=== PATIENT | male | born 1935 | race Caucasian/White ===

== ENCOUNTER → 2017-02-05 | Outpatient (CLI) | payer BC ==
[2017-02-05 11:31] LABS: Blood Urea Nitrogen 21 mg/dL (9-20); Non-African American GFR(MDRD) >60 (>60 ml/min/1.73 sqM)
--- NOTE | 2017-02-05 15:03 | CT ---
EXAMINATION TYPE: CT ChestAbdPelvis w con DATE OF EXAM: 02/05/2017 COMPARISON: CT April 08, [address] August 02, 2016 HISTORY: History of bladder cancer and lung cancer CT DLP: 1684 mGycm Automated exposure control for dose reduction was used. CONTRAST: CT scan of the chest, abdomen and pelvis is performed with Oral Contrast and with IV Contrast, patien t injected with 100 mL of Omnipaque 300. FINDINGS: LUNGS: The lungs are clear and free of infiltrate or atelectasis. No pulmonary nodule or mass is dete cted. No pleural effusion. Scattered subpleural fibrosis and prominent emphysematous changes. MEDIASTINUM: Thoracic aorta is of normal caliber. The right suprahilar prominent lymph node is redemo nstrated, and stable. No other hilar/mediastinal lymph nodes. Coronary calcifications redemonstrated . HILAR STRUCTURES: No evidence for mass. No hilar adenopathy is appreciated. OTHER: No significant abn ormality. LIVER/GB: No calcified gallstones. No space occupying hepatic lesion. Biliary tree is of normal calib er. PANCREAS: No inflammation. No distinct mass. SPLEEN: No splenic enlargement. No lesion seen. ADRENALS: No significant findings; left adrenal nodular appearance remains stable. KIDNEYS/BLADDER: No hydronephrosis. No nephrolithiasis. Stable left renal cyst. Limited evaluation of the urinary bladder given extensive streak artifact from right hip prosthesis. No distinct wall thic kening or masses seen. BOWEL: Normal appendix. Normal bowel caliber. No inflammation. GENITAL ORGANS: No gross abnormality. LYMPH NODES: No greater than 1cm abdominal or pelvic lymph nodes are appreciated. AORTA: Atheromatous and ectatic change of the abdominal aorta. OSSEOUS STRUCTURES: No significant abnormality is seen. IMPRESSION: 1. STABLE NEGATIVE EXAM. 2. LIMITED VISUALIZATION OF THE URINARY BLADDER IS NOTED AGAIN, SECONDARY TO BEAM HARDENING ARTIFACT FROM RIGHT HIP PROSTHESIS. IF CLINICALLY NEEDED, PELVIC MRI METALLIC PROTOCOL CAN BE USED FOR EVALU ATING THE URINARY BLADDER AND DEEP PELVIC STRUCTURES. 3. RIGHT SUPRAHILAR LYMPH NODE.
== END | disposition home or self-care (01) ==
LOC: RADCTMAIN 10:58
PROVIDERS: ATTEND Internal Medicine Hematology & Oncology
DX: C67.2 Malignant neoplasm of lateral wall of bladder (principal)
CPT/HCPCS: 82565; 84520; 71260; 74177; 36415; Q9967

== ENCOUNTER → 2017-08-29 | Outpatient (CLI) | payer BC, MEDICARE ==
[2017-08-29 13:07] LABS: Blood Urea Nitrogen 17 mg/dL (9-20)
--- NOTE | 2017-08-29 14:50 | CT ---
EXAMINATION TYPE: CT ChestAbdPelvis w con DATE OF EXAM: 08/29/2017 COMPARISON: 02/05/2017 and 09/05/2015. HISTORY: Bladder cancer CT DLP: 1542 mGycm. Automated Exposure Control for Dose Reduction was Utilized. CONTRAST: CT scan of the thorax, abdomen and pelvis is performed with IV Contrast, patient injected with 80 mL of Visipaque 320. FINDINGS: LUNGS: Bibasilar pleural parenchymal scarring and moderate paraseptal as well as centrilobular emphys ematous changes the lungs are noted. No new pulmonary nodule or mass. Subpleural fibrosis is unchange d. There is no pleural effusion or pneumothorax seen. The tracheobronchial tree is patent. MEDIASTINUM: There is continued stability of the suprahilar approximately 1.8 x 1.5 cm conglomeration of lymph nodes other scattered nonenlarged lymph nodes are seen within the pretracheal space and aor ticopulmonary window. Severe three-vessel coronary artery calcifications are noted. No pericardial ef fusion is seen. Moderate calcific atheromatous changes are seen of the thoracic aorta. OTHER: Bilateral retroareolar mild gynecomastia is seen. LIVER/GB: No focal hepatic lesion is identified. No intrapelvic biliary ductal dilatation. Cholelithi asis is redemonstrated. PANCREAS: No significant abnormality is seen. No ductal dilatation. SPLEEN: No significant abnormality is seen. No splenomegaly. ADRENALS: Bilobed left adrenal gland nodule measures approximately 1.7 x 1.1 cm and is stable from th e prior. Right adrenal gland is unremarkable. This appears stable dating back to 09/05/2015. KIDNEYS: Fluid attenuated left renal cyst is again seen extending towards the renal pelvis. No hydron ephrosis of either kidney. Kidneys enhance symmetrically other than the previously described left anali al cyst. BOWEL: Numerous sigmoid diverticula are present without pericolonic fat stranding. Other scattered co lonic diverticula are seen, also without surrounding fat stranding. No evidence of bowel dilation. GENITAL ORGANS: The prostate gland is enlarged and heterogenous measuring 5.1 cm. LYMPH NODES: No greater than 1cm abdominal or pelvic lymph nodes are appreciated. OSSEOUS STRUCTURES: Right hip prostheses and moderate multilevel degenerative changes of the visualiz ed thoracolumbar and lumbosacral spine are present. No new suspicious osseous lesion. Dextroscoliotic curvature of the lumbar spine is noted. OTHER: Visualization of the urinary bladder is limited given extensive spray artifact due to the righ t hip prostheses. There is tortuosity of the abdominal aorta with measurement exaggerated by obliquit y although ectasia is measured up to 3.3 x 3.1 cm on series 5 image 82. This extends over approximate ly 5.5 cm on sagittal series 8 image 57. Moderate calcific and noncalcific atheromatous plaquing is s een of the abdominal aorta and its branches. IMPRESSION: 1. Limited visualization of the urinary bladder given extensive spray artifact from the right hip pro stheses. Urinary bladder surveillance could be followed with ultrasound and would be better visualize d in this patient with a history of urinary bladder carcinoma. 2. No suspicious pulmonary nodules in this patient with a given history of lung carcinoma. Moderate p araseptal and centrilobular emphysematous changes and subpleural fibrosis are similar to the prior. 3. Continued stability of the right suprahilar 1.8 x 1.5 cm conglomeration of lymph nodes. No new med iastinal adenopathy. 4. Stable left bilobed adrenal gland nodule measuring 1.7 cm in greatest dimension. 5. Tortuosity of the abdominal aorta partially secondary to a dextroscoliotic curvature of the lumbar spine exaggerates the ectasia. Infrarenal ectasia measures 3.3 x 3.1 x 5.5 cm. 6. Prostate gland enlargement. 7. Fluid attenuated left renal cyst and sigmoid diverticulosis.
== END | disposition home or self-care (01) ==
LOC: RADCTMAIN 11:12
PROVIDERS: ATTEND Internal Medicine Hematology & Oncology
DX: N28.1 Cyst of kidney, acquired (principal); K57.30 Diverticulosis of large intestine without perforation or abscess without bleeding; N40.0 Benign prostatic hyperplasia without lower urinary tract symptoms; J43.2 Centrilobular emphysema; E27.8 Other specified disorders of adrenal gland; I77.1 Stricture of artery; C67.2 Malignant neoplasm of lateral wall of bladder; Z85.118 Personal history of other malignant neoplasm of bronchus and lung
CPT/HCPCS: 82565; 84520; 71260; 74177; 36415; Q9967

== ENCOUNTER → 2017-11-14 | Outpatient (CLI) | payer BC ==
--- NOTE | 2017-11-14 14:04 | MR ---
EXAMINATION TYPE: MR cervical spine wo/w con DATE OF EXAM: 11/14/2017 12:49 PM COMPARISON: NONE HISTORY: Cervical disc degeneration, mid-cervical CONTRAST: The patient was injected with 7 mL intravenous Gadavist gadolinium contrast. Multiplanar MultiSpin echo imaging of the cervical spine was performed. C2-C3: No evidence for degenerative disc disease. No disc bulge/herniation or protrusion. No Canal stenosis. Foramina are patent bilaterally. C3-C4: No evidence for degenerative disc disease. No disc bulge/herniation or protrusion. No Canal stenosis. Foramina are patent bilaterally.Partial congenital fusion noted. C4-C5: Mild degenerative disc disease with mild posterior disc bulge. No evidence for disc herniation or protrusion. No central stenosis. Degenerative changes uncovertebral joints with mild right forami nal encroachment. C5-C6: Severe disc desiccation with the disc endplate complex noted posteriorly. Effacement ventral t hecal sac and ventral cord contact paracentrally and to the left. There is a moderate central stenosi s. Bilateral foraminal encroachment noted. C6-C7: Severe disc desiccation. Broad-based posterior disc bulge with partial encapsulating spur. Mil d central stenosis. Bilateral foraminal encroachment. C7-T1: Moderate to severe disc desiccation. Posterior disc bulge. No evidence of disc herniation or p rotrusion. No central stenosis. Bilateral foraminal encroachment. No cervical spine fracture. There is normal alignment. Cervical spinal cord is of normal signal. C raniovertebral junction relationships are within normal limits. No pathologic enhancement. IMPRESSION: 1. Multilevel degenerative disc disease and spondylosis. 2. Central stenosis noted at C5-6 and C6-7 as noted above. 3. Bilateral foraminal encroachment at multiple levels.
== END | disposition home or self-care (01) ==
LOC: RADMRIMAIN 11:14
PROVIDERS: ATTEND Family Medicine
DX: M48.02 Spinal stenosis, cervical region (principal); M47.812 Spondylosis without myelopathy or radiculopathy, cervical region; M50.321 Other cervical disc degeneration at C4-C5 level
CPT/HCPCS: 82565; 72156; A9581

== ENCOUNTER → 2018-02-25 | Outpatient (CLI) | payer BC ==
--- NOTE | 2018-02-25 13:31 | CT ---
EXAMINATION TYPE: CT ChestAbdPelvis w con DATE OF EXAM: 02/25/2018 COMPARISON: 08/29/2017 HISTORY: Bladder and lung cancer CT DLP: 1439 mGycm Automated exposure control for dose reduction was used. CONTRAST: CT scan of the chest, abdomen and pelvis is performed with Oral Contrast and with IV Contrast, patien t injected with 100 ml mL of Isovue 300. FINDINGS: LUNGS: Bibasilar pleural parenchymal scarring and moderate paraseptal as well as centrilobular emphys ematous changes the lungs are noted. No new pulmonary nodule or mass. Subpleural fibrosis is unchange d. There is no pleural effusion or pneumothorax seen. The tracheobronchial tree is patent. MEDIASTINUM: There is continued stability of the right suprahilar approximately 1.8 x 1.5 cm conglome ration of lymph nodes other scattered nonenlarged lymph nodes are seen within the pretracheal space a nd aorticopulmonary window. Severe three-vessel coronary artery calcifications are noted. No pericard ial effusion is seen. Moderate calcific atheromatous changes are seen of the thoracic aorta. OTHER: Bilateral retroareolar mild gynecomastia is seen LIVER/GB: Cholelithiasis stable. PANCREAS: No significant abnormality is seen. SPLEEN: No significant abnormality is seen. ADRENALS: Bilobed left adrenal gland nodule measures approximately 1.7 x 1.1 cm and is stable from th e prior. Right adrenal gland is unremarkable KIDNEYS: Fluid attenuated left renal cyst is again seen extending towards the renal pelvis. No hydron ephrosis of either kidney. Kidneys enhance symmetrically other than the previously described left anali al cyst BOWEL: BOWEL: Numerous sigmoid diverticula are present without pericolonic fat stranding. Other scat tered colonic diverticula are seen, also without surrounding fat stranding. No evidence of bowel dila tion LYMPH NODES: No greater than 1 cm abdominal or pelvic lymph nodes are appreciated. OSSEOUS STRUCTURES: Scoliotic curvature with multilevel degenerative disc disease noted. Right hip pr ostheses noted which results in significant artifact limits evaluation the pelvis. BOWEL: Numerous sigmoid diverticula are present without pericolonic fat stranding. Other scattered c olonic diverticula are seen, also without surrounding fat stranding. No evidence of bowel dilation OTHER: Visualization of the urinary bladder is limited given extensive spray artifact due to the righ t hip prostheses. There is ectasia of the abdominal aorta measuring a maximal dimension of 3.2 cm sim ilar in appearance to the prior exam. Diffuse atherosclerotic change of the vasculature noted. IMPRESSION: 1. Limited visualization of the urinary bladder given extensive spray artifact from the right hip pro stheses. Urinary bladder surveillance could be followed with ultrasound and would be better visualize d in this patient with a history of urinary bladder carcinoma. 2. No suspicious pulmonary nodules in this patient with a given history of lung carcinoma. Moderate p araseptal and centrilobular emphysematous changes and subpleural fibrosis are similar to the prior. 3. Continued stability of the right suprahilar 1.8 x 1.5 cm conglomeration of lymph nodes. No new med iastinal adenopathy. 4. Stable left bilobed adrenal gland nodule measuring 1.7 cm in greatest dimension. 5. Tortuosity of the abdominal aorta partially secondary to a dextroscoliotic curvature of the lumbar spine exaggerates the ectasia. Infrarenal ectasia measures 3.3 x 3.1 x 5.5 cm. 6. Prostate gland enlargement. 7. Fluid attenuated left renal cyst and sigmoid diverticulosis.
== END | disposition home or self-care (01) ==
LOC: RADCTMAIN 11:11
PROVIDERS: ATTEND Internal Medicine Hematology & Oncology
DX: K57.30 Diverticulosis of large intestine without perforation or abscess without bleeding (principal); J43.2 Centrilobular emphysema; J84.10 Pulmonary fibrosis, unspecified; E27.8 Other specified disorders of adrenal gland; I77.811 Abdominal aortic ectasia; N40.0 Benign prostatic hyperplasia without lower urinary tract symptoms; N28.1 Cyst of kidney, acquired; Z85.118 Personal history of other malignant neoplasm of bronchus and lung; Z85.51 Personal history of malignant neoplasm of bladder; Z96.641 Presence of right artificial hip joint
CPT/HCPCS: 82565; 84520; 71260; 74177; 36415; Q9967

== ENCOUNTER → 2018-06-03 | Outpatient (CLI) | payer BC ==
[2018-06-03 11:26] LABS: Basophils % (A) 1 %; Eosinophils # (A) 0.4 k/uL (0-0.7); Eosinophils % (A) 6 %; HCT 45.5 % (39.0-53.0); Lymphocytes % (A) 26 %; MCH 30.7 pg (25.0-35.0); Mean Platelet Volume 7.1; Monocytes # (A) 0.7 k/uL (0-1.0); Monocytes % (A) 8 %; Neutrophils # (A) 4.5 k/uL (1.3-7.7); Neutrophils % (A) 58 %; Platelet Count 288 k/uL (150-450); RBC 4.89 m/uL (4.30-5.90); RDW 13.3 % (11.5-15.5); WBC 7.8 k/uL (3.8-10.6)
[2018-06-03 12:02] LABS: Albumin 3.8 g/dL (3.5-5.0); Calcium 9.1 mg/dL (8.4-10.2); Potassium 4.8 mmol/L (3.5-5.1); Total Bilirubin 0.9 mg/dL (0.2-1.3); Total Protein 7.2 g/dL (6.3-8.2)
[2018-06-03 12:16] LABS: T4, Free (Free Thyroxine) 0.88 ng/dL (0.78-2.19)
== END | disposition home or self-care (01) ==
LOC: LABWHC1 09:42
PROVIDERS: ATTEND Family Medicine
DX: Z00.00 Encounter for general adult medical examination without abnormal findings (principal); E78.5 Hyperlipidemia, unspecified; I25.2 Old myocardial infarction; J44.9 Chronic obstructive pulmonary disease, unspecified; Z79.899 Other long term (current) drug therapy
CPT/HCPCS: 36415; 80053; 80061; 84439; 84443; 85025

== ENCOUNTER → 2018-09-01 | Outpatient (CLI) | payer BC ==
--- NOTE | 2018-09-01 14:56 | CT ---
EXAMINATION TYPE: CT ChestAbdPelvis w con DATE OF EXAM: 09/01/2018 COMPARISON: Prior CT chest abdomen pelvis 02/25/2018 HISTORY: Follow up to bladder CA CT DLP: 1533 mGycm Automated exposure control for dose reduction was used. CONTRAST: CT scan of the chest, abdomen and pelvis is performed with Oral Contrast and with IV Contrast, patien t injected with 100 mL of Isovue 300. FINDINGS: Coronary artery calcifications are present LUNGS: The lungs are stable with extensive emphysematous changes, there are associated interstitial l yael disease changes with basilar honeycombing, there is no concerning parenchymal mass or nodule iden tified. There is no pleural effusion or pneumothorax seen. The tracheobronchial tree is patent. MEDIASTINUM: There are no greater than 1 cm mediastinal lymph nodes. Right hilar nodes show prominenc e measuring 17 mm in short axis slightly diminished from prior when it measured 21 mm No pericardial effusion is seen. AORTA: Small ulceration noted laterally and inferiorly axial image 17, coronal image 53 at the trans verse aorta, the aorta is calcified and dense, atheromatous changes also present in the descending co jewell and abdominal aorta, iliac vasculature. Infrarenal abdominal aortic aneurysm measures 3.5 cm as o n prior OTHER: No additional significant abnormality is seen. LIVER/GB: Gallbladder shows dependent calculi and some soft tissue prominence noted at the distal asp ect of the fundus is stable, liver shows no mass. PANCREAS: No significant abnormality is seen. SPLEEN: No significant abnormality is seen. ADRENALS: Stable, slightly prominent left adrenal gland. KIDNEYS: Left kidney shows stable cystic focus and there is no hydronephrosis bilaterally REPRODUCTIVE ORGANS: Prostate is enlarged. BOWEL: Extensive diverticular change noted in the sigmoid colon FREE AIR: No Free Air visible. ASCITES: None seen. RETROPERITONEAL ADENOPATHY: No retroperitoneal adenopathy is seen. LYMPH NODES: No greater than 1 cm abdominal or pelvic lymph nodes are appreciated. URINARY BLADDER: No significant interval change is seen. PELVIC ADENOPATHY: None visualized. OSSEOUS STRUCTURES: Scoliotic curvature is noted in the visualized spine. Degenerative disc changes are noted, postop change noted to the right hip. There is facet arthropathy in the lower lumbar spine . IMPRESSION: Emphysema and interstitial lung disease. Coronary artery disease. Infrarenal abdominal ao rtic aneurysm. Diverticulosis. Cholelithiasis. Right hilar node has decreased in size but is enlarged . Additional findings above.
== END ==
LOC: RADCTMAIN 11:07
PROVIDERS: ATTEND Internal Medicine Hematology & Oncology
DX: C67.2 Malignant neoplasm of lateral wall of bladder (principal); J43.9 Emphysema, unspecified; J84.9 Interstitial pulmonary disease, unspecified; I25.10 Atherosclerotic heart disease of native coronary artery without angina pectoris; I71.4 Abdominal aortic aneurysm, without rupture; K57.90 Diverticulosis of intestine, part unspecified, without perforation or abscess without bleeding; K80.20 Calculus of gallbladder without cholecystitis without obstruction
CPT/HCPCS: 82565; 84520; 71260; 74177; 36415; Q9967

== ENCOUNTER → 2019-03-02 | Outpatient (CLI) | payer BC ==
--- NOTE | 2019-03-02 19:32 | CT ---
EXAMINATION TYPE: CT ChestAbdPelvis w con DATE OF EXAM: 03/02/2019 INDICATION: Follow up for bladder CA. Recent bronchitis and thrush. COMPARISON: 09/01/2018 CT DLP: 590.1 mGycm CONTRAST: Performed with Oral Contrast and with IV Contrast, patient injected with 80 mL of Isovue 300. TECHNIQUE: Axial images at 5 mm thick sections. Reconstructed images in the coronal plane. Delayed images through the kidneys. FINDINGS: CT CHEST: Portion of the thyroid visualized is normal. No suspicious lung nodules or focal infiltrates are present. Emphysematous changes with multiple bleb s and bulla are within the bilateral lungs. Some nonspecific pneumonitis changes within the periphera l left lower lobe infectious etiology could be considered. Other etiologies are not excluded. There is a 2.1 cm right suprahilar lymph node. This has enlarged. Multiple small lymph nodes are in t he aortopulmonic window and in the pretracheal space. Note is made of coronary artery calcification. The ascending aorta diameter at the level of the main pulmonary artery is 3.6 cm. The main pulmonary artery diameter at the bifurcation is 2.[address] ABDOMEN: Liver: Normal Spleen: Normal Pancreas: Normal Adrenal glands: Left adrenal gland is thickened at 1.2 cm. This is stable. The right adrenal gland is normal. Gallbladder: Small gallstone is present. Kidneys: No masses are evident. No hydronephrosis is present. There is a 1.6 cm cyst in the mid lef t kidney measuring 14 Hounsfield units. Tiny cortical renal cysts on the mid right kidney. Delayed i mages were obtained through the kidneys, which remain unremarkable. Aorta: Vascular calcification is within the aorta. There is fusiform prominence of the mid abdominal aorta with an AP diameter of 3.5 cm. No interval enlargement is evident. Inferior vena cava: Normal. CT PELVIS: Diverticuli are within the sigmoid colon. No acute diverticulitis is evident. No inflammatory changes are evident. Lower pelvis is limited due to right hip prosthesis beam hardening artifact. Appendix: Not visualized. Urinary bladder: Normal as visualized Genitourinary structures: Prostate is prominent. Osseous structures: No suspicious lytic or sclerotic lesions. There is a scoliosis present. IMPRESSIONS: 1. Diverticulosis without acute diverticulitis. 2. Fusiform prominence mid abdominal aorta at 3.5 cm. No interval enlargement is evident. 3. Cortical renal cysts. 4. Stable mild thickening of the left adrenal gland. 5. Enlarging right suprahilar lymph node. 6. Infiltrate through the peripheral left lower lobe suspicious for an infectious etiologies such as pneumonia. Follow-up is recommended. 7. Cholelithiasis
== END | disposition home or self-care (01) ==
LOC: RADCTMAIN 10:14
PROVIDERS: ATTEND Internal Medicine Hematology & Oncology
DX: K57.90 Diverticulosis of intestine, part unspecified, without perforation or abscess without bleeding (principal); K80.20 Calculus of gallbladder without cholecystitis without obstruction; N28.1 Cyst of kidney, acquired; E27.8 Other specified disorders of adrenal gland; R59.9 Enlarged lymph nodes, unspecified; C67.2 Malignant neoplasm of lateral wall of bladder; I77.89 Other specified disorders of arteries and arterioles
CPT/HCPCS: 82565; 84520; 71260; 74177; 36415; Q9967

== ENCOUNTER → 2019-06-02 | Outpatient (CLI) | payer BC ==
--- NOTE | 2019-06-02 15:57 | CT ---
EXAMINATION TYPE: CT ChestAbdPelvis w con DATE OF EXAM: 06/02/2019 COMPARISON: 03/02/2019 and 09/01/2018 HISTORY: 84-year-old male follow-up bladder CA TECHNIQUE: Contiguous axial scanning of the chest, abdomen, and pelvis performed with IV Contrast, pa tient injected with 80 mL of Isovue 300. Delayed images through the kidneys were obtained. Coronal/sa gittal reconstructions performed. CT DLP: 1332 mGycm Automated exposure control for dose reduction was used. FINDINGS: CHEST: Heart normal size without pericardial effusion. Extensive coronary vessel calcifications are present. Aorta normal caliber with moderate arch calcifications and conventional vessel branching anatomy. AP window lymph nodes measure up to 9 mm, unchanged from 03/02/2019 but increased from 09/01/2018 when re measured 6 mm. Right hilar lymph node measures 2.1 x 1.9 cm versus 2.1 x 1.8 cm on 03/02/2019 and 2.1 x 1.6 cm on 2018. Moderate paraseptal emphysema in the upper lungs. Subpleural interstitial changes in the appearance o f honeycombing in the left greater than right lower lungs. Chronic appearing ground glass in the left lower lobe now, similar to 09/01/2018, densities improved from 03/02/2019. No pleural effusion. ABDOMEN: No focal liver lesion or biliary ductal dilatation. Portal venous system is patent. Couple gallstones measuring up to 5 mm. No abnormal gallbladder distention. Right adrenal gland, spleen, and pancreas appear within normal limits. There Subcentimeter cortical hypodensity lateral right kidney too small fractured CT characterization, stab le suggestive of a tiny cortical cysts. Larger centrally located 2.5 cm cyst left kidney. Stable 1.9 x 1.7 cm left adrenal gland nodularity. No dilated small bowel, free fluid, or free air. Stable borderline to mildly enlarged es hepatic lymph nodes measure up to 1 cm. Otherwise, no mese nteric or retroperitoneal lymphadenopathy. Moderate stool burden. Left-sided colonic diverticulosis, greatest in the proximal to mid sigmoid col on. No pericolonic inflammatory change. Moderate atherosclerotic calcifications and plaque within the infrarenal abdominal aorta with stable mild aneurysm measuring up to 3.2 cm. Moderate at this chronic calcifications continue into the iliac vessels. Pelvis: Bladder is urine distended. Prominent streak and beam hardening artifact from the patient's right hip replacement limits visualization of the pelvis. Prostate gland appears enlarged measuring 5.0 cm wid e. Pelvic phleboliths. No abnormal fluid collection seen in the pelvis are definite pelvic lymphadeno emilee. Bladder is urine distended. Bones: Right hip total arthroplasty. Degenerative changes left hip. Degenerative subarticular sclerosis infe rior left SI joint. Moderate to advanced degenerative disc disease lumbar spine with hypertrophic fac et arthropathy. Degenerated dextroconvex scoliosis lumbar spine. Small endplate Schmorl's nodes noted scattered within the mid thoracic spine. No osseous destructive process seen IMPRESSION: 1. THE PATIENT'S RIGHT HILAR LYMPH NODE SHOWS MINIMAL GRADUAL ENLARGEMENT CURRENTLY MEASURING 2.1 X 1 .9 CM (VERSUS 2.1 X 1.8 CM ON 03/02/2019 AND 2.1 X 1.6 CM ON 09/01/2018). 2. PROMINENT BUT NONENLARGED MEDIASTINAL LYMPH NODES MEASURING UP TO 9 MM ARE UNCHANGED FROM 03/02/2019 BUT INCREASED FROM 09/01/2018 WHERE THEY MEASURED UP TO 6 MM. 3. COPD AND CHRONIC INTERSTITIAL LUNG DISEASE, POSSIBLE PULMONARY FIBROSIS. 4. CHOLELITHIASIS, STABLE 1.9 CM LEFT ADRENAL NODULE PROBABLE ADRENAL ADENOMA, STABLE BORDERLINE TO MILDLY ENLARGED PORTAHEPATIC LYMPH NODE AT 1 CM, LEFT-SIDED COLONIC DIVERTICULOSIS, AND STABLE AAA AT 3.2 CM.
== END | disposition home or self-care (01) ==
LOC: RADCTMAIN 10:06
PROVIDERS: ATTEND Internal Medicine Hematology & Oncology
DX: K80.20 Calculus of gallbladder without cholecystitis without obstruction (principal); J44.9 Chronic obstructive pulmonary disease, unspecified; J84.9 Interstitial pulmonary disease, unspecified; C67.2 Malignant neoplasm of lateral wall of bladder
CPT/HCPCS: 82565; 84520; 71260; 74177; 36415; Q9967 ×2

== ENCOUNTER 2020-02-20 15:00 | Emergency (ER) | payer BC, MEDICARE ==
[2020-02-20 15:10] VITALS: BP 151/91; PULSE 76; RESP 18; TEMP 98.3
--- NOTE | 2020-02-20 15:29 | ED ---
General Adult HPI - General Chief complaint: Urogenital Stated complaint: Male Time Seen by Provider: 02/20/20 15:13 Source: patient, RN notes reviewed, old records reviewed Mode of arrival: ambulatory Limitations: no limitations - History of Present Illness Initial comments: 84-year-old male presents history of bladder cancer presenting for evaluation of dysuria and penile pain as well as pain below the scrotum. Patient has had chronic issue with this after previous radiation secondary to bladder cancer. He follows with urology on a regular basis he has an appointment for which is 4 days from now. He reports that he had been seen previously by urology with this complaint and was given Flomax. He states he's been tested for urinary tract infections in the past and does have a history of recurrent UTI. He denies pain with bowel movement. Denies change in his stool output. Denies vomiting. Denies abdominal pain. Denies fever. No history of diabetes. - Related Data Home Medications Medication Instructions Recorded Confirmed Atorvastatin Calcium [Lipitor] 10 mg PO DAILY 10/14/15 10/24/15 Latanoprost Ophth [Xalatan 0.005%] 1 drops BOTH EYES HS 10/14/15 10/24/15 Timolol 0.5% Ophth Soln [Timoptic 1 drop BOTH EYES HS 10/14/15 10/24/15 0.5% Ophth Soln] Previous Rx's Medication Instructions Recorded Aspirin 325 mg PO BID #60 tab 10/26/15 Docusate [Colace] 100 mg PO DAILY #30 capsule 10/26/15 HYDROcodone/APAP 7.5-325MG [[place] 1 - 2 each PO Q6HR PRN #60 tab 10/26/15 7.5] hydrOXYzine PAMOATE [Vistaril] 25 mg PO Q6HR #60 capsule 10/26/15 Cephalexin [Keflex] 500 mg PO Q12HR #20 cap 02/20/20 Allergies Allergy/AdvReac Type Severity Reaction Status Date / Time No Known Allergies Allergy Verified 02/20/20 15:10 Review of Systems ROS Statement: Those systems with pertinent positive or pertinent negative responses have been documented in the HPI. ROS Other: All systems not noted in ROS Statement are negative. Past Medical History Past Medical History: Cancer, COPD, Osteoarthritis (OA) Additional Past Medical History / Comment(s): bladder CA History of Any Multi-Drug Resistant Organisms: None Reported Past Surgical History: Joint Replacement, Orthopedic Surgery Additional Past Surgical History / Comment(s): 10/24/15 Total R hip arthroplasty anterior approach. Other surgeries: BILATERAL CARPAL TUNNEL RELEASE, LEFT ARM SURGERY , BLADDER BIOPSY, R hip replacement Past Anesthesia/Blood Transfusion Reactions: No Reported Reaction Past Psychological History: No Psychological Hx Reported Smoking Status: Former smoker Past Alcohol Use History: None Reported Past Drug Use History: None Reported - Past Family History Father Family Medical History: Cancer Additional Family Medical History / Comment(s): LUNG CANCER General Exam Limitations: no limitations General appearance: alert, in no apparent distress Head exam: Present: atraumatic, normocephalic Eye exam: Present: normal appearance, PERRL ENT exam: Present: normal exam Neck exam: Present: normal inspection. Absent: tenderness, meningismus Respiratory exam: Present: normal lung sounds bilaterally. Absent: respiratory distress, wheezes Cardiovascular Exam: Present: regular rate, normal rhythm GI/Abdominal exam: Present: soft. Absent: distended, tenderness, guarding, rebound Rectal exam: Present: normal rectal tone. Absent: black stool, bloody stool, tenderness exam: Present: other (Patient has some irritation at the base of the glans, no phimosis or paraphimosis.). Absent: testicular tenderness, urethral discharge, scrotal swelling Neurological exam: Present: alert, oriented X3, CN II-XII intact. Absent: motor sensory deficit Skin exam: Present: warm, dry, intact. Absent: cyanosis, diaphoretic Course Vital Signs 02/20/20 15:05 Temperature 98.3 F Pulse Rate 76 Respiratory 18 Rate Blood Pressure 151/91 O2 Sat by Pulse 97 Oximetry Medical Decision Making - Medical Decision Making 84-year-old male with dysuria, penile pain. Patient does have some irritation at the glans, he is instructed to keep this area clean and dry, there is no phimosis or paraphimosis. He has urology follow-up appointment on of this week. He is given close return parameters, fever, vomiting, worsening symptoms. He has a urinalysis showing 12 white cells, culture is pending and the patient will be initiated on Keflex. Patient is well-appearing with stable vitals, eager for discharge. - Lab Data Lab Results 02/20/20 Range/Units 15:46 Urine Color Yellow Urine Appearance Clear (Clear) Urine pH 6.0 (5.0-8.0) Ur Specific [place] 1.020 (1.001-1.035) Urine Protein Trace H (Negative) Urine Glucose (UA) Negative (Negative) Urine Ketones Negative (Negative) Urine Blood Negative (Negative) Urine Nitrite Negative (Negative) Urine Bilirubin Negative (Negative) Urine Urobilinogen <2.0 (<2.0) mg/dL Ur Leukocyte Esterase Trace H (Negative) Urine WBC 12 H (0-5) /hpf Disposition Clinical Impression: UTI (urinary tract infection) Disposition: HOME SELF-CARE Condition: Fair Instructions (If sedation given, give patient instructions): Urinary Tract Infection in Men (ED) Prescriptions: Cephalexin [Keflex] 500 mg PO Q12HR #20 cap Is patient prescribed a controlled substance at d/c from ED?: No Referrals: Lucho Diaz MD [Primary Care Provider] - 1-2 days Bert Quinonez MD [STAFF PHYSICIAN] - 1-2 days Time of Disposition: 16:31
[2020-02-20 16:21] LABS: Appearance,Urine Clear (Clear); Bilirubin,Urine Negative (Negative); Blood,Urine Negative (Negative); Color,Urine Yellow; Glucose,Urine (UA) Negative (Negative); Ketones,Urine Negative (Negative); Leukocyte Esterase,Urine Trace (Negative); Nitrite,Urine Negative (Negative); Protein,Urine Trace (Negative); Urobilinogen,Urine <2.0 mg/dL (<2.0); WBC,Urine 12 /hpf (0-5)
== END 2020-02-20 16:59 | disposition home or self-care (01) ==
LOC: EC 15:00
DX: N39.0 Urinary tract infection, site not specified (principal); Z79.899 Other long term (current) drug therapy; Z87.891 Personal history of nicotine dependence; Z96.641 Presence of right artificial hip joint; Z85.51 Personal history of malignant neoplasm of bladder; Z92.3 Personal history of irradiation
CPT/HCPCS: 81001; 87086; 99284

== ENCOUNTER → 2020-03-18 | Outpatient (CLI) | payer BC ==
--- NOTE | 2020-03-18 12:33 | CT ---
EXAMINATION TYPE: CT pelvis w con DATE OF EXAM: 03/18/2020 COMPARISON: CT abdomen pelvis 06/02/2019 HISTORY: LLQ pain, constipation CT DLP: 552.7 mGycm Automated exposure control for dose reduction was used. TECHNIQUE: Contiguous axial scanning of the pelvis was performed with administration of 100 mL Isovue -300 intravenous contrast and administration of oral contrast. Coronal and sagittal reformatted image s were obtained. FINDINGS: Bowel: No evidence of bowel obstruction. Colonic diverticulosis, most notably of the sigmoid colon. N o visualized acute diverticulitis. Transverse and proximal descending colon are not visualized in ent irety. Upper abdomen: Completely visualized gallbladder with cholelithiasis. Unchanged 1.9 cm left adrenal n odule. The kidneys demonstrate bilateral cysts and no hydronephrosis or hydroureter. Urinary bladder: Completely distended and partially obscured due to streak artifact from right hip ar throplasty hardware. GENITOURINARY: Prominent prostate gland. Peritoneum: No free or focal fluid collections. No visualized free air. Lymph nodes: No lymphadenopathy. Vasculature: Unchanged tortuous course of the abdominal aorta with calcified and noncalcified atheros clerotic disease, and infrarenal abdominal aortic aneurysm measuring up to 3.2 cm AP. MUSCULOSKELETAL: Right hip prosthesis incompletely visualized, with no evidence of dislocation. Levos coliosis and degenerative changes of the lumbar spine. IMPRESSION: MARKED COLONIC DIVERTICULOSIS WITH NO EVIDENCE OF ACUTE DIVERTICULITIS.
== END | disposition home or self-care (01) ==
LOC: RADCTMAIN 07:57
PROVIDERS: ATTEND Family Medicine
DX: K57.30 Diverticulosis of large intestine without perforation or abscess without bleeding (principal); R10.32 Left lower quadrant pain; K92.1 Melena; R19.4 Change in bowel habit
CPT/HCPCS: 82565; 84520; 72193; 36415; Q9967

== ENCOUNTER → 2021-08-10 | Outpatient (CLI) | payer BC ==
--- NOTE | 2021-08-10 14:46 | CT ---
EXAMINATION TYPE: CT urogram wo/w con DATE OF EXAM: 08/10/2021 COMPARISON: Prior CT chest abdomen pelvis June 02, [address] pelvis March 18, 2020 along with cristianae r CTs HISTORY: Bladder Cancer CT DLP: 2193 mGycm, Automated Exposure Control for Dose Reduction was Utilized. CONTRAST: CT scan of the abdomen and pelvis is performed without oral and without and with IV Contrast, patient injected with 100 ml mL of Isovue 300. Urogram protocol with 3-D reconstructed images created on an independent workstation and reviewed. FINDINGS: KUB: Noncontrast images show no renal calculi bilaterally. Postcontrast images show symmetric cortica l uptake and excretion without hydronephrosis and with occasional simple-appearing thin-walled cysts scattered throughout both kidneys, largest measures 2.8 x 2.1 cm midpole level series 9 image 29. No new concerning solid or cystic intrahepatic mass bilaterally. Visualized portion of both ureters show no concerning masses or obstructing calculus. Streak artifact from adjacent right hip prosthesis red emonstrated Makes Evaluation of bladder slightly suboptimal. No concerning intraluminal calculus or m ass clearly seen. LUNG BASES: Moderate emphysematous change including moderate parenchymal fibrosis with some honeycomb ing left lung base greater than right is redemonstrated. Coronary artery calcification again seen. LIVER/GB: Small intraluminal calcified gallstones redemonstrated. PANCREAS: No significant abnormality is seen. SPLEEN: No significant abnormality is seen. ADRENALS: No significant abnormality is seen. BOWEL: Diverticulosis in the left and sigmoid colon redemonstrated. No CT evidence for acute divertic ulitis. No suspicious small or large bowel dilatation. PROSTATE/SEMINAL VESICLES: Mildly enlarged prostate bulging on bladder base consistent with BPH. Scat tered bilateral pelvic phleboliths. LYMPH NODES: No greater than 1cm abdominal or pelvic lymph nodes are appreciated. OSSEOUS STRUCTURES: Underlying distal convex scoliosis centered at L2 level. Moderate to severe disc space narrowing with spurring and sclerosis left L2-L3 and L3-L4 levels along with right L4-L5 and L5 -S1 levels. OTHER: Moderate to severe mixed peripheral plaque of the aorta extends into branch vessels. Ectatic c oursed to the abdominal aorta measuring up tor 3.2 cm axial image 41 series 6 there is redemonstrated . IMPRESSION: No suspicious new mass or adenopathy.
== END | disposition home or self-care (01) ==
LOC: RADCTMAIN 11:51
PROVIDERS: ATTEND Urology
DX: C67.9 Malignant neoplasm of bladder, unspecified (principal)
CPT/HCPCS: 82565; 84520; 74178; 36415; 74400; Q9967

== ENCOUNTER 2021-09-16 18:12 | Emergency (ER) | payer BC ==
[2021-09-16 18:19] VITALS: TEMP 98.2
[2021-09-16] MEDS ORDERED: HYDROcodone/APAP 5-325MG 1 EACH TAB PO STA (19:30)
--- NOTE | 2021-09-16 19:56 | ED ---
General Adult HPI - General Chief complaint: Abdominal Pain Stated complaint: Trouble Urinating Time Seen by Provider: 09/16/21 19:17 Source: patient Mode of arrival: ambulatory Limitations: no limitations - History of Present Illness Initial comments: Patient presents to the emergency department with a recurrent and consistent urethral burning. Patient sees local urology and has been being treated for bladder cancer with your pyridium. Patient states he had a cystoscopy 2 weeks ago. Patient states this morning ureteritis has been present for several months. Patient states he can only take the medication for 3 days and has to quit. Patient saw his urologist and was told his urine was clear. He denies any fever or chills. No hematuria. No change in bowel movement. No abdominal or pelvic pain. No chest pain or shortness of breath. No skin rashes or lesions. Patient is uncircumcised. Denies any sexual activity. No discharge. Onset/Timin -: month(s) Location: genitals Radiation: non-radiation Severity scale (1-10): 8 Quality: burning Consistency: constant Improves with: none Worsens with: other (Urination) Associated Symptoms: denies other symptoms - Related Data Home Medications Medication Instructions Recorded Confirmed Atorvastatin Calcium [Lipitor] 10 mg PO DAILY 10/14/15 10/24/15 Latanoprost Ophth [Xalatan 0.005%] 1 drops BOTH EYES HS 10/14/15 10/24/15 Timolol 0.5% Ophth Soln [Timoptic 1 drop BOTH EYES HS 10/14/15 10/24/15 0.5% Ophth Soln] Previous Rx's Medication Instructions Recorded Aspirin 325 mg PO BID #60 tab 10/26/15 Docusate [Colace] 100 mg PO DAILY #30 capsule 10/26/15 HYDROcodone/APAP 7.5-325MG [[place] 1 - 2 each PO Q6HR PRN #60 tab 10/26/15 7.5] hydrOXYzine pamoate [Vistaril] 25 mg PO Q6HR #60 capsule 10/26/15 Cephalexin [Keflex] 500 mg PO Q12HR #20 cap 02/20/20 Cefdinir 300 mg PO Q12HR #14 cap 09/16/21 Phenazopyridine HCl [Pyridium] 100 mg PO TID PRN #6 tab 09/16/21 Allergies Allergy/AdvReac Type Severity Reaction Status Date / Time No Known Allergies Allergy Verified 09/16/21 18:19 Review of Systems ROS Statement: Those systems with pertinent positive or pertinent negative responses have been documented in the HPI. ROS Other: All systems not noted in ROS Statement are negative. Past Medical History Past Medical History: Cancer, COPD, Osteoarthritis (OA) Additional Past Medical History / Comment(s): bladder CA History of Any Multi-Drug Resistant Organisms: None Reported Past Surgical History: Joint Replacement, Orthopedic Surgery Additional Past Surgical History / Comment(s): 10/24/15 Total R hip arthroplasty anterior approach. Other surgeries: BILATERAL CARPAL TUNNEL RELEASE, LEFT ARM SURGERY , BLADDER BIOPSY, R hip replacement Past Anesthesia/Blood Transfusion Reactions: No Reported Reaction Past Psychological History: No Psychological Hx Reported Smoking Status: Current every day smoker Past Alcohol Use History: None Reported Past Drug Use History: None Reported - Past Family History Father Family Medical History: Cancer Additional Family Medical History / Comment(s): LUNG CANCER General Exam Limitations: no limitations General appearance: alert, in no apparent distress Head exam: Present: atraumatic, normocephalic, normal inspection Eye exam: Present: normal appearance, PERRL, EOMI. Absent: scleral icterus, conjunctival injection, periorbital swelling ENT exam: Present: normal exam, mucous membranes moist Neck exam: Present: normal inspection. Absent: tenderness, meningismus, lymphadenopathy Respiratory exam: Present: normal lung sounds bilaterally. Absent: respiratory distress, wheezes, rales, rhonchi, stridor Cardiovascular Exam: Present: regular rate, normal rhythm, normal heart sounds. Absent: systolic murmur, diastolic murmur, rubs, gallop, clicks GI/Abdominal exam: Present: soft, normal bowel sounds. Absent: distended, tenderness, guarding, rebound, rigid exam: Present: normal inspection. Absent: testicular tenderness, urethral discharge, scrotal swelling, circumcision External exam: Absent: erythema, swelling, lacerations, ecchymosis Extremities exam: Present: normal inspection, full ROM, normal capillary refill. Absent: tenderness, pedal edema, joint swelling, calf tenderness Back exam: Present: normal inspection Neurological exam: Present: alert, oriented X3, CN II-XII intact Psychiatric exam: Present: normal affect, normal mood Skin exam: Present: warm, dry, intact, normal color. Absent: rash Course Vital Signs 09/16/21 09/16/21 18:17 21:13 Temperature 98.2 F Pulse Rate 85 74 Respiratory 20 18 Rate Blood Pressure 149/84 163/87 O2 Sat by Pulse 96 97 Oximetry - Reevaluation(s) Reevaluation #1: 09/16/21 21:47 Medical record is reviewed Symptoms are improved here in the emergency department Patient is informed of results and questions answered Patient in no distress Medical Decision Making - Medical Decision Making Urologist is Dr. Ambriz Patient's workup shows evidence of a urinary tract infection. Patient did have a recent cystoscopy. We'll cover with a third generation cephalosporin for 7 days. I did give her a short course of Pyridium. Patient to call his urologist on Saturday morning without fail. I discussed with the patient. All questions answered. Follow-up with your regular physician as directed. Return to the ER immediately if any symptoms worsen, new symptoms arise, or any other problems develop. - Lab Data Result diagrams: 09/16/21 19:49 09/16/21 19:49 Lab Results 09/16/21 09/16/21 09/16/21 Range/Units 19:49 19:49 20:11 WBC 7.1 (3.8-10.6) k/uL RBC 4.12 L (4.30-5.90) m/uL Hgb 12.9 L (13.0-17.5) gm/dL Hct 39.7 (39.0-53.0) % MCV 96.4 (80.0-100.0) fL MCH 31.3 (25.0-35.0) pg MCHC 32.5 (31.0-37.0) g/dL RDW 13.0 (11.5-15.5) % Plt Count 218 (150-450) k/uL MPV 7.1 Neutrophils % 73 % Lymphocytes % 15 % Monocytes % 6 % Eosinophils % 3 % Basophils % 1 % Neutrophils # 5.2 (1.3-7.7) k/uL Lymphocytes # 1.1 (1.0-4.8) k/uL Monocytes # 0.4 (0-1.0) k/uL Eosinophils # 0.2 (0-0.7) k/uL Basophils # 0.0 (0-0.2) k/uL Sodium 132 L (137-145) mmol/L Potassium 4.4 (3.5-5.1) mmol/L Chloride 105 (98-107) mmol/L Carbon Dioxide 17 L (22-30) mmol/L Anion Gap 10 mmol/L BUN 28 H (9-20) mg/dL Creatinine 1.36 H (0.66-1.25) mg/dL Est GFR (CKD-EPI)AfAm 54 (>60 ml/min/1.73 sqM) Est GFR (CKD-EPI)NonAf 47 (>60 ml/min/1.73 sqM) Glucose 105 H (74-99) mg/dL Calcium 8.9 (8.4-10.2) mg/dL Urine Color Yellow Urine Appearance Clear (Clear) Urine pH 5.5 (5.0-8.0) Ur Specific [place] 1.015 (1.001-1.035) Urine Protein 1+ H (Negative) Urine Glucose (UA) Negative (Negative) Urine Ketones Negative (Negative) Urine Blood Small H (Negative) Urine Nitrite Negative (Negative) Urine Bilirubin Negative (Negative) Urine Urobilinogen <2.0 (<2.0) mg/dL Ur Leukocyte Esterase Small H (Negative) Urine RBC 51 H (0-5) /hpf Urine WBC 18 H (0-5) /hpf Urine WBC Clumps Rare H (None) /hpf Ur Squamous Epith Cells <1 (0-4) /hpf Urine Bacteria Rare H (None) /hpf Hyaline Casts 37 H (0-2) /lpf Urine Mucus Rare H (None) /hpf Disposition Clinical Impression: Acute cystitis, Chronic urethritis Disposition: HOME SELF-CARE Condition: Good Instructions (If sedation given, give patient instructions): Urinary Tract Infection in Men (ED) Additional Instructions: Follow-up with urology, take the antibiotics as directed. Follow-up with your regular physician as directed. Return to the ER immediately if any symptoms worsen, new symptoms arise, or any other problems develop. Prescriptions: Cefdinir 300 mg PO Q12HR #14 cap Phenazopyridine HCl [Pyridium] 100 mg PO TID PRN #6 tab PRN Reason: Pain Is patient prescribed a controlled substance at d/c from ED?: No Referrals: Erasmo Ambriz MD [STAFF PHYSICIAN] - 09/18/21 Time of Disposition: 21:49
[2021-09-16 20:00] LABS: Basophils % (A) 1 %; Eosinophils # (A) 0.2 k/uL (0-0.7); Eosinophils % (A) 3 %; HCT 39.7 % (39.0-53.0); HGB 12.9 gm/dL (13.0-17.5); Lymphocytes # (A) 1.1 k/uL (1.0-4.8); Lymphocytes % (A) 15 %; MCH 31.3 pg (25.0-35.0); MCHC 32.5 g/dL (31.0-37.0); MCV 96.4 fL (80.0-100.0); Mean Platelet Volume 7.1; Monocytes # (A) 0.4 k/uL (0-1.0); Monocytes % (A) 6 %; Neutrophils # (A) 5.2 k/uL (1.3-7.7); Neutrophils % (A) 73 %; Platelet Count 218 k/uL (150-450); RBC 4.12 m/uL (4.30-5.90); WBC 7.1 k/uL (3.8-10.6)
[2021-09-16 20:17] LABS: Calcium 8.9 mg/dL (8.4-10.2); Potassium 4.4 mmol/L (3.5-5.1)
--- NOTE | 2021-09-16 20:31 | XR ---
EXAMINATION TYPE: XR KUB DATE OF EXAM: 09/16/2021 COMPARISON: NONE HISTORY: Abdominal pain TECHNIQUE: 2 views FINDINGS: There is no sign of intestinal obstruction or pneumoperitoneum. Fecal pattern is normal. Th ere is some interstitial infiltrate left lower lobe. There is right hip prosthesis. There is mild lum bar dextroscoliosis. IMPRESSION: Nonacute abdomen.
[2021-09-16 20:35] LABS: Appearance,Urine Clear (Clear); Bacteria,Urine Rare /hpf; Bilirubin,Urine Negative (Negative); Blood,Urine Small (Negative); Color,Urine Yellow; Glucose,Urine (UA) Negative (Negative); Hyaline Casts,Urine 37 /lpf (0-2); Ketones,Urine Negative (Negative); Leukocyte Esterase,Urine Small (Negative); Mucus,Urine Rare /hpf; Nitrite,Urine Negative (Negative); PH, Urine 5.5 (5.0-8.0); Protein,Urine 1+ (Negative); RBC,Urine 51 /hpf (0-5); Specific Gravity,Urine 1.015 (1.001-1.035); Squamous Epithelial Cell,Urine <1 /hpf (0-4); Urobilinogen,Urine <2.0 mg/dL (<2.0); WBC,Urine 18 /hpf (0-5)
[2021-09-16 21:17] VITALS: BP 163/87; PULSE 74; RESP 18
[2021-09-16] MEDS ORDERED: PHENAZOPYRIDINE 200 MG TAB PO ONE (22:00)
[2021-09-16] MEDS ORDERED: CEFDINIR 300 MG CAP PO ONE (22:00)
== END 2021-09-16 22:07 | disposition home or self-care (01) ==
LOC: EC 18:12
DX: N30.00 Acute cystitis without hematuria (principal); N34.2 Other urethritis; J44.9 Chronic obstructive pulmonary disease, unspecified; F17.200 Nicotine dependence, unspecified, uncomplicated
CPT/HCPCS: 36415; 51798; 74018; 80048; 81001; 85025; 87086; 99284

== ENCOUNTER 2021-09-25 08:53 | Emergency (ER) | payer BC ==
[2021-09-25] MEDS ORDERED: ACETAMINOPHEN TAB 325 MG TAB PO STA (09:35)
[2021-09-25] MEDS ORDERED: HYDROcodone/APAP 5-325MG 1 EACH TAB PO STA (09:58)
[2021-09-25 10:03] LABS: Appearance,Urine Cloudy (Clear); Bacteria,Urine Moderate /hpf; Bilirubin,Urine Negative (Negative); Blood,Urine Moderate (Negative); Color,Urine Yellow; Glucose,Urine (UA) Negative (Negative); Hyaline Casts,Urine 12 /lpf (0-2); Ketones,Urine Negative (Negative); Leukocyte Esterase,Urine Moderate (Negative); Mucus,Urine Rare /hpf; Nitrite,Urine Negative (Negative); PH, Urine 5.5 (5.0-8.0); Protein,Urine Trace (Negative); RBC,Urine 66 /hpf (0-5); Specific Gravity,Urine 1.014 (1.001-1.035); Squamous Epithelial Cell,Urine <1 /hpf (0-4); Urobilinogen,Urine <2.0 mg/dL (<2.0); WBC,Urine 61 /hpf (0-5)
--- NOTE | 2021-09-25 10:58 | ED ---
Male Urogenital HPI - General Chief complaint: Urogenital Stated complaint: Male Time Seen by Provider: 09/25/21 09:02 Source: patient Limitations: no limitations - History of Present Illness Initial comments: Patient is an 86-year-old male with a past medical history of bladder cancer and chronic urethritis who presents with dysuria. Patient reports he has been experiencing dysuria for a couple months. He states that he had a cystoscopy performed by his urologist around 3.5 weeks ago which was negative. He continued to have dysuria so he reported to [facility] emergency department on 09/16/21 where KUB x-ray was negative. He was treated for urinary tract infection with Cefdinir x 7 days and Pyridium and instructed to follow-up with urology. Patient states that pain continued consistently, 10/10 in severity while urinating. He was reevaluated by his urologist on 09/23/21 where his urinalysis was clear and he was instructed to take Advil for pain. Patient reports today due to refractory dysuria. He notes that pyridium only worked for 3 days. He denies fever, chills, shortness of breath, chest pain, abdominal pain, urinary retention, urinary incontinence, urethral discharge, and rectal pain. Patient does not know if he is in remission but reports his last chemotherapy treatment for bladder cancer was in 2013. - Related Data Home Medications Medication Instructions Recorded Confirmed Dutasteride 0.5 mg PO DAILY 09/25/21 09/25/21 Ketorolac 0.5% Ophth Soln [Acular 1 drop BOTH EYES QID 09/25/21 09/25/21 0.5%] Prednisolone Acetate/Pf 1 drop BOTH EYES QID 09/25/21 09/25/21 [Prednisolone Acet 1% Eye Drop] Tamsulosin HCl [Flomax] 0.4 mg PO PC-SUPPER 09/25/21 09/25/21 Vit C/E/Zn/Coppr/Lutein/Zeaxan 1 cap PO BID 09/25/21 09/25/21 [Preservision Areds 2 Softgel] Previous Rx's Medication Instructions Recorded HYDROcodone/APAP 10-325MG [[place] 1 tab PO Q6HR PRN 3 Days #12 tab 09/25/21 10-325] Nitrofurantoin Macrocrystal 100 mg PO BID 5 Days #10 capsule 09/25/21 [Nitrofurantoin] Allergies Allergy/AdvReac Type Severity Reaction Status Date / Time No Known Allergies Allergy Verified 09/25/21 09:28 Review of Systems ROS Statement: Those systems with pertinent positive or pertinent negative responses have been documented in the HPI. ROS Other: All systems not noted in ROS Statement are negative. Past Medical History Past Medical History: Cancer, COPD, Osteoarthritis (OA) Additional Past Medical History / Comment(s): bladder CA History of Any Multi-Drug Resistant Organisms: None Reported Past Surgical History: Joint Replacement, Orthopedic Surgery Additional Past Surgical History / Comment(s): 10/24/15 Total R hip arthroplasty anterior approach. Other surgeries: BILATERAL CARPAL TUNNEL RELEASE, LEFT ARM SURGERY , BLADDER BIOPSY, R hip replacement Past Anesthesia/Blood Transfusion Reactions: No Reported Reaction Past Psychological History: No Psychological Hx Reported Smoking Status: Current every day smoker Past Alcohol Use History: None Reported Past Drug Use History: None Reported - Past Family History Father Family Medical History: Cancer Additional Family Medical History / Comment(s): LUNG CANCER General Exam Limitations: no limitations Course Vital Signs 09/25/21 08:57 Temperature 97.3 F L Pulse Rate 99 Respiratory 18 Rate Blood Pressure 147/76 O2 Sat by Pulse 95 Oximetry Medical Decision Making - Medical Decision Making Patient is an 86-year-old male with a past medical history of bladder cancer and chronic urethritis who presents with dysuria. Patient does not know if he is in remission for bladder cancer but reports last chemotherapy in 2013. Patient was recently discharged from [facility] emergency department to urinary tract infection and has taken cefdinir as prescribed. Patient had continued pain so he reported to his urologist on 09/23/21 where urine was clear. Today, urinalysis reveals evidence of infection with blood likely due to cystoscopy. CBC is unremarkable. CMP reveals mildly elevated BUN and creatinine, similar to previous labs. Results discussed with patient and patient's friend. I will prescribe patient a different antibiotic and alternative pain medication instruction to follow up with urologist for repeat urinalysis, further evaluation and treatment. Return parameters discussed. - Lab Data Result diagrams: 09/25/21 10:16 09/25/21 10:50 Lab Results 09/25/21 09/25/21 09/25/21 Range/Units 09:26 10:16 10:50 WBC 5.1 (3.8-10.6) k/uL RBC 3.98 L (4.30-5.90) m/uL Hgb 12.6 L (13.0-17.5) gm/dL Hct 38.2 L (39.0-53.0) % MCV 95.9 (80.0-100.0) fL MCH 31.6 (25.0-35.0) pg MCHC 33.0 (31.0-37.0) g/dL RDW 13.3 (11.5-15.5) % Plt Count 240 (150-450) k/uL MPV 7.7 Neutrophils % 68 % Lymphocytes % 17 % Monocytes % 8 % Eosinophils % 4 % Basophils % 0 % Neutrophils # 3.5 (1.3-7.7) k/uL Lymphocytes # 0.9 L (1.0-4.8) k/uL Monocytes # 0.4 (0-1.0) k/uL Eosinophils # 0.2 (0-0.7) k/uL Basophils # 0.0 (0-0.2) k/uL Sodium 133 L (137-145) mmol/L Potassium 4.5 (3.5-5.1) mmol/L Chloride 106 (98-107) mmol/L Carbon Dioxide 22 (22-30) mmol/L Anion Gap 5 mmol/L BUN 23 H (9-20) mg/dL Creatinine 1.39 H (0.66-1.25) mg/dL Est GFR (CKD-EPI)AfAm 53 (>60 ml/min/1.73 sqM) Est GFR (CKD-EPI)NonAf 46 (>60 ml/min/1.73 sqM) Glucose 97 (74-99) mg/dL Calcium 9.1 (8.4-10.2) mg/dL Total Bilirubin 0.7 (0.2-1.3) mg/dL AST 31 (17-59) U/L ALT 27 (4-49) U/L Alkaline Phosphatase 98 (38-126) U/L Total Protein 7.1 (6.3-8.2) g/dL Albumin 3.3 L (3.5-5.0) g/dL Urine Color Yellow Urine Appearance Cloudy (Clear) Urine pH 5.5 (5.0-8.0) Ur Specific [place] 1.014 (1.001-1.035) Urine Protein Trace H (Negative) Urine Glucose (UA) Negative (Negative) Urine Ketones Negative (Negative) Urine Blood Moderate H (Negative) Urine Nitrite Negative (Negative) Urine Bilirubin Negative (Negative) Urine Urobilinogen <2.0 (<2.0) mg/dL Ur Leukocyte Esterase Moderate H (Negative) Urine RBC 66 H (0-5) /hpf Urine WBC 61 H (0-5) /hpf Urine WBC Clumps Few H (None) /hpf Ur Squamous Epith Cells <1 (0-4) /hpf Urine Bacteria Moderate H (None) /hpf Hyaline Casts 12 H (0-2) /lpf Urine Mucus Rare H (None) /hpf Disposition Clinical Impression: Dysuria Disposition: HOME SELF-CARE Condition: Good Instructions (If sedation given, give patient instructions): Urinary Tract Infection in Men (ED) Additional Instructions: Take medications as prescribed. Follow-up with primary care at earliest a vailable appointment for pain management. Follow up with urologist in 1-2 days for repeat urinalysis, evaluation, and treatment. Return to the ER if you experience any new, concerning, or worsening symptoms. Prescriptions: Nitrofurantoin Macrocrystal [Nitrofurantoin] 100 mg PO BID 5 Days #10 capsule HYDROcodone/APAP 10-325MG [[place] 10-325] 1 tab PO Q6HR PRN 3 Days #12 tab PRN Reason: Pain Scale 9 To 10 Is patient prescribed a controlled substance at d/c from ED?: Yes When asked, does pt state using other controlled substances?: No If prescribed controlled substance>3 days was MAPS reviewed?: Prescribed <3 Days If opioid is for acute pain is fill amount 7 days or less?: Yes If Rx opioid, was Start Talking consent form obtained?: Yes Referrals: Lucho Diaz MD [Primary Care Provider] - 1-2 days Erasmo Ambriz MD [STAFF PHYSICIAN] - 1-2 days
[2021-09-25 11:12] LABS: Basophils % (A) 0 %; Eosinophils # (A) 0.2 k/uL (0-0.7); Eosinophils % (A) 4 %; HCT 38.2 % (39.0-53.0); HGB 12.6 gm/dL (13.0-17.5); Lymphocytes # (A) 0.9 k/uL (1.0-4.8); Lymphocytes % (A) 17 %; MCH 31.6 pg (25.0-35.0); MCV 95.9 fL (80.0-100.0); Mean Platelet Volume 7.7; Monocytes # (A) 0.4 k/uL (0-1.0); Monocytes % (A) 8 %; Neutrophils # (A) 3.5 k/uL (1.3-7.7); Neutrophils % (A) 68 %; Platelet Count 240 k/uL (150-450); RBC 3.98 m/uL (4.30-5.90); RDW 13.3 % (11.5-15.5); WBC 5.1 k/uL (3.8-10.6)
[2021-09-25 11:27] LABS: Albumin 3.3 g/dL (3.5-5.0); Calcium 9.1 mg/dL (8.4-10.2); Potassium 4.5 mmol/L (3.5-5.1); Total Bilirubin 0.7 mg/dL (0.2-1.3); Total Protein 7.1 g/dL (6.3-8.2)
[2021-09-25 13:12] VITALS: BP 140/84; PULSE 64; RESP 20; TEMP 98.1
== END 2021-09-25 13:12 | disposition home or self-care (01) ==
LOC: EC 08:53
DX: R30.0 Dysuria (principal); J44.9 Chronic obstructive pulmonary disease, unspecified; M19.90 Unspecified osteoarthritis, unspecified site; F17.200 Nicotine dependence, unspecified, uncomplicated
CPT/HCPCS: 36415; 80053; 81001; 85025; 87086; 99283

== ENCOUNTER 2021-09-28 20:23 | Emergency (ER) | payer BC, MEDICARE ==
[2021-09-28 20:33] VITALS: BP 170/84; PULSE 87; RESP 20; TEMP 97.6
--- NOTE | 2021-09-28 20:49 | ED ---
General Adult HPI - General Chief complaint: Urogenital Stated complaint: Dizzy, Problems urinating Time Seen by Provider: 09/28/21 20:34 Source: patient Mode of arrival: ambulatory Limitations: no limitations - History of Present Illness Initial comments: Dictation was produced using N(i)² dictation software. please excuse any grammatical, word or spelling errors. Chief Complaint: Patient is an 86-year-old male presents to the emergency department for dysuria History of Present Illness: Is an 86-year-old male. He presents to emergency department for dysuria. Patient states that over the last several weeks he's had pain with voiding. Patient is seen urologist and primary care physician regarding his symptoms. Patient was trying to follow-up with urology however he was not able to get an appointment. He followed up with his PCP and they put him on ciprofloxacin. Patient was seen here in emergency department 11 days ago and 3 days ago. He's had urine cultures that are negative both occasions. Patient states that he has difficulty urinating however does not feel like he has to urinate. The ROS documented in this emergency department record has been reviewed and confirmed by me. Those systems with pertinent positive or negative responses have been documented in the HPI. All other systems are other negative and/or noncontributory. PHYSICAL EXAM: General Impression: Alert and oriented x3, not in acute distress HEENT: Normocephalic atraumatic, extra-ocular movements intact, pupils equal and reactive to light bilaterally, mucous membranes moist. Cardiovascular: Heart regular rate and rhythm Chest: Able to complete full sentences, no retractions, no tachypnea Motor: no focal deficits noted Neurological: CN II-XII grossly intact, no focal motor or sensory deficits noted Skin: Intact with no visualized rashes Psych: Normal affect and mood ED course: 86-year-old male. He is this is his third visit to us in the last 2 weeks for the same complaint. Patient has had workup and evaluations with urology and primary care doctor. Chart review was performed. He had urine cultures performed on September 08, September 16, September 20 and September 25 all negative for infection. Patient not having any urine retention. Stable to provide urine sample and reports an adequate urinary stream. Post void residual is 110. Urinalysis shows 9 white blood cells. Pending culture. Patient states she's been put on ciprofloxacin by his primary care doctor. Spoke with Dr. Hand was familiar with the patient and request the patient follow-up in the office in 1-2 days. - Related Data Home Medications Medication Instructions Recorded Confirmed Dutasteride 0.5 mg PO DAILY 09/25/21 09/25/21 Ketorolac 0.5% Ophth Soln [Acular 1 drop BOTH EYES QID 09/25/21 09/25/21 0.5%] Prednisolone Acetate/Pf 1 drop BOTH EYES QID 09/25/21 09/25/21 [Prednisolone Acet 1% Eye Drop] Tamsulosin HCl [Flomax] 0.4 mg PO PC-SUPPER 09/25/21 09/25/21 Vit C/E/Zn/Coppr/Lutein/Zeaxan 1 cap PO BID 09/25/21 09/25/21 [Preservision Areds 2 Softgel] Previous Rx's Medication Instructions Recorded HYDROcodone/APAP 10-325MG [[place] 1 tab PO Q6HR PRN 3 Days #12 tab 09/25/21 10-325] Nitrofurantoin Macrocrystal 100 mg PO BID 5 Days #10 capsule 09/25/21 [Nitrofurantoin] Allergies Allergy/AdvReac Type Severity Reaction Status Date / Time No Known Allergies Allergy Verified 09/28/21 20:29 Review of Systems ROS Statement: Those systems with pertinent positive or pertinent negative responses have been documented in the HPI. ROS Other: All systems not noted in ROS Statement are negative. Past Medical History Past Medical History: Cancer, COPD, Osteoarthritis (OA) Additional Past Medical History / Comment(s): bladder CA History of Any Multi-Drug Resistant Organisms: None Reported Past Surgical History: Joint Replacement, Orthopedic Surgery Additional Past Surgical History / Comment(s): 10/24/15 Total R hip arthroplasty anterior approach. Other surgeries: BILATERAL CARPAL TUNNEL RELEASE, LEFT ARM SURGERY , BLADDER BIOPSY, R hip replacement Past Anesthesia/Blood Transfusion Reactions: No Reported Reaction Past Psychological History: No Psychological Hx Reported Smoking Status: Current every day smoker Past Alcohol Use History: None Reported Past Drug Use History: None Reported - Past Family History Father Family Medical History: Cancer Additional Family Medical History / Comment(s): LUNG CANCER General Exam Limitations: no limitations Course Vital Signs 09/28/21 20:29 Temperature 97.6 F Pulse Rate 87 Respiratory 20 Rate Blood Pressure 170/84 O2 Sat by Pulse 98 Oximetry Medical Decision Making - Lab Data Lab Results 09/28/21 Range/Units 21:10 Urine Color Light Yellow Urine Appearance Clear (Clear) Urine pH 6.5 (5.0-8.0) Ur Specific [place] 1.012 (1.001-1.035) Urine Protein Trace H (Negative) Urine Glucose (UA) Negative (Negative) Urine Ketones Negative (Negative) Urine Blood Negative (Negative) Urine Nitrite Negative (Negative) Urine Bilirubin Negative (Negative) Urine Urobilinogen <2.0 (<2.0) mg/dL Ur Leukocyte Esterase Small H (Negative) Urine RBC 2 (0-5) /hpf Urine WBC 9 H (0-5) /hpf Urine Bacteria Rare H (None) /hpf Urine Mucus Rare H (None) /hpf Disposition Clinical Impression: Dysuria Disposition: HOME SELF-CARE Condition: Good Instructions (If sedation given, give patient instructions): Dysuria (ED) Is patient prescribed a controlled substance at d/c from ED?: No Referrals: Lucho Diaz MD [Primary Care Provider] - 1-2 days Erasmo Ambriz MD [STAFF PHYSICIAN] - 1-2 days
[2021-09-28 21:26] LABS: Appearance,Urine Clear (Clear); Bacteria,Urine Rare /hpf; Bilirubin,Urine Negative (Negative); Blood,Urine Negative (Negative); Color,Urine Light Yellow; Glucose,Urine (UA) Negative (Negative); Ketones,Urine Negative (Negative); Leukocyte Esterase,Urine Small (Negative); Mucus,Urine Rare /hpf; Nitrite,Urine Negative (Negative); PH, Urine 6.5 (5.0-8.0); Protein,Urine Trace (Negative); RBC,Urine 2 /hpf (0-5); Specific Gravity,Urine 1.012 (1.001-1.035); Urobilinogen,Urine <2.0 mg/dL (<2.0); WBC,Urine 9 /hpf (0-5)
== END 2021-09-28 21:40 | disposition home or self-care (01) ==
LOC: EC 20:23
DX: R30.0 Dysuria (principal); J44.9 Chronic obstructive pulmonary disease, unspecified; M19.90 Unspecified osteoarthritis, unspecified site; F17.200 Nicotine dependence, unspecified, uncomplicated; Z79.899 Other long term (current) drug therapy
CPT/HCPCS: 51798; 81001; 99283

== ENCOUNTER 2021-10-16 13:01 | Day surgery (SDC) | payer BC, MEDICARE ==
[2021-10-12 11:17] VITALS: BMI 20.7
[~2021-10-16 13:01] MED LIST: LACTATED RINGERS 1,000 ML IV SCH; LIDOCAINE 1% (10MG/ML) FOR IV START INTRADERMA PRN; ONDANSETRON 4 MG/2 ML VIAL IVP ONE
--- NOTE | 2021-10-16 13:05 | P.HPIHPCON ---
History of Present Illness H&P Date: 10/16/21 This is an 86-year-old male with history of small cell carcinoma of the bladder. Treated with chemotherapy, previously followed up with Dr. Quinonez. 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 Discussed with him given this finding I recommend proceeding with bladder biopsy. As the cause of his symptoms could be bladder cancer recurrence. Discussed the risks which includes but not limited to bleeding, infection, bladder perforation. He understood all the risk and agreed to proceed Consent for Procedure: I have explained the operation/procedure to the patient, including the risks, benefits, side effects, alternative therapies (including not receiving the proposed treatment or service), the likelihood of the patient achieving his/her goals, and potential recuperation problems for the procedure/sedation/analgesia, as well as any blood products, if indicated. I also explained to the patient the risks, benefits and side effects of the alternatives, as well as the risks related to not receiving the proposed procedure, care, treatment, or services. Past Medical History Past Medical History: Cancer, COPD, Osteoarthritis (OA) Additional Past Medical History / Comment(s): bladder CA (2013 WITH CHEMO)., BPH., CONSTIPATION, STATES PAIN PERINEAL AREA AND URETHRA. History of Any Multi-Drug Resistant Organisms: None Reported Past Surgical History: Joint Replacement, Orthopedic Surgery Additional Past Surgical History / Comment(s): 10/24/15 Total R hip arthroplasty anterior approach. , BILATERAL CARPAL TUNNEL RELEASE, LEFT ARM SURGERY., CYSTOSCOPY AND REMOVAL BLADDER CANCER., GLAUCOMA SURGERY AUG 2021 Past Anesthesia/Blood Transfusion Reactions: No Reported Reaction Past Psychological History: No Psychological Hx Reported Additional Psychological History / Comment(s): . Smoking Status: Current some day smoker, Former smoker Past Alcohol Use History: None Reported Additional Past Alcohol Use History / Comment(s): CURRENTLY SMOKES OCCASIONAL CIGARETTE - QUIT IN SMOKING IN 2013, STARTED SMOKING AT AGE 20 ,SMOKED 1/2PPD Past Drug Use History: None Reported - Past Family History Father Family Medical History: Cancer Additional Family Medical History / Comment(s): LYMPHOMA Medications and Allergies Home Medications Medication Instructions Recorded Confirmed Type Dutasteride 0.5 mg PO DAILY 09/25/21 10/12/21 History Ketorolac 0.5% Ophth Soln [Acular 1 drop LEFT EYE QID 09/25/21 10/12/21 History 0.5%] Prednisolone Acetate/Pf 1 drop LEFT EYE QID 09/25/21 10/12/21 History [Prednisolone Acet 1% Eye Drop] Tamsulosin HCl [Flomax] 0.4 mg PO DAILY 09/25/21 10/12/21 History Vit C/E/Zn/Coppr/Lutein/Zeaxan 1 cap PO BID 09/25/21 10/12/21 History [Preservision Areds 2 Softgel] Ibuprofen 600 - 800 mg PO DAILY PRN 10/12/21 10/12/21 History Allergies Allergy/AdvReac Type Severity Reaction Status Date / Time No Known Allergies Allergy Verified 10/12/21 11:04 Surgical - Exam - General no distress, no pain - Eyes normal ocular movement - ENT normal nares, normal mucosa - Abdomen Abdomen: soft, non tender Assessment and Plan Assessment: OR for cystoscopy and a bladder biopsy,
[2021-10-16] MEDS ORDERED: ROCURONIUM 10 MG/ML (5 ML VIAL) IV ONE (15:20)
[2021-10-16] MEDS ORDERED: NEOSTIGMINE 1 MG/ML 10 ML VIAL ONE (15:20)
[2021-10-16] MEDS ORDERED: GLYCOPYRROLATE 0.2 MG/ML 2 ML VIAL ONE (15:20)
[2021-10-16] MEDS ORDERED: fentaNYL (PF) 50 MCG/ML 2 ML AMP ONE (15:20)
[2021-10-16] MEDS ORDERED: SUCCINYLCHOLINE CHLORIDE 100 MG/5 ML SYR IV ONE (15:20)
[2021-10-16] MEDS ORDERED: LIDOCAINE 1% INJ 10MG/ML (20 ML MDV) ONE (15:20)
[2021-10-16] MEDS ORDERED: PROPOFOL 10 MG/ML 20 ML VIAL IV ONE (15:20)
[2021-10-16] MEDS: HYDROmorphone 0.5 MG/0.5 ML SYRINGE IVP PRN ×3 (16:33→17:07)
[2021-10-16] MEDS ORDERED: HYDROcodone/APAP 5-325MG 1 EACH TAB PO PRN (18:22)
--- NOTE | 2021-10-16 18:30 | P.OP ---
Date of Procedure: 10/16/21 Preoperative Diagnosis: Bladder cancer, dysuria Postoperative Diagnosis: Same Procedure(s) Performed: Cystoscopy, bladder biopsy, transurethral prostate biopsy Implants: None Anesthesia: RUSSELLA Surgeon: Erasmo Ambriz Estimated Blood Loss (ml): 10 Pathology: other (Bladder, prostate biopsy) Condition: stable Disposition: PACU Indications for Procedure: This is an 86-year-old male with history of small cell carcinoma of the bladder. Treated with chemotherapy, previously followed up with Dr. Quinonez. 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 Discussed with him given this finding I recommend proceeding with bladder biopsy. As the cause of his symptoms could be bladder cancer recurrence. Discussed the risks which includes but not limited to bleeding, infection, bladder perforation. He understood all the risk and agreed to proceed Operative Findings: Normal cystoscopy, diffused erythemata lesion along the posterior bladder wall, right lateral wall, left lateral wall Description of Procedure: Patient was brought to the operating room, general anesthesia was induced. He was prepped and draped so fashion a placement dorsal lithotomy position. Resectoscope fitted with 25-Thai sheath was inserted per urethra, the cystoscope was advanced into the bladder cystoscopy was performed showed diffused erythema along the posterior bladder wall, right and left lateral wall. no abnormality in the prostatatic urethra or urethra. Using the bipolar resectoscope multiple biopsies were taken of the bladder, the area of biopsy was thoroughly fulgurated. Biopsy were taken from posterior, right lateral, left lateral and bladder base. Next attention was carried to the prostate, biopsies were performed using the transurethral resectoscope. A biopsy was performed on each lobe of the prostate The area of biopsy was thoroughly fulgurated. A 18- Thai Landon was placed with return of clear urine. Patient tolerated procedure well taken to recovery in stable condition
[2021-10-16] MEDS: KETOROLAC 30 MG/ML 1 ML VIAL IVP SCH (18:53)
[2021-10-16] MEDS: prednisoLONE ACETATE 1% OPHTH DROPS 5 ML BTL LEFT EYE SCH (20:13)
[2021-10-16] MEDS: KETOROLAC 0.5% OPHTH DROPS 5 ML BTL LEFT EYE SCH (20:13)
[2021-10-17] MEDS: KETOROLAC 30 MG/ML 1 ML VIAL IVP SCH (05:03)
[2021-10-17 07:36] VITALS: BP 128/69; PULSE 68; RESP 16; TEMP 97.5
[2021-10-17] MEDS ORDERED: TAMSULOSIN 0.4 MG CAP.ER.24H PO SCH (09:00)
[2021-10-17] MEDS ORDERED: FINASTERIDE 5 MG TAB PO SCH (09:00)
--- NOTE | 2021-10-17 09:15 | P.DS ---
Providers Attending physician: Erasmo Ambriz MD Primary care physician: Lucho [facility] Course: 86 yo S/P bladder biopsy and transuretheral prostate biopsy, admitted post op for pain control. His pain improved this am. He was discharged home on POD #1, at time of discharge he was tolerating a diet, and pain is controlled. urine was clear this am. Plan - Discharge Summary Discharge Rx Participant: Yes New Discharge Prescriptions: New Cephalexin [Keflex] 500 mg PO Q8HR #15 cap HYDROcodone/APAP 10-325MG [[place] 10-325] 1 tab PO Q6HR PRN 3 Days #12 tab PRN Reason: Pain No Action Dutasteride 0.5 mg PO DAILY Vit C/E/Zn/Coppr/Lutein/Zeaxan [Preservision Areds 2 Softgel] 1 cap PO BID Prednisolone Acetate/Pf [Prednisolone Acet 1% Eye Drop] 1 drop LEFT EYE QID Ketorolac 0.5% Ophth Soln [Acular 0.5%] 1 drop LEFT EYE QID Tamsulosin HCl [Flomax] 0.4 mg PO DAILY Ibuprofen 600 - 800 mg PO DAILY PRN PRN Reason: Pain Discharge Medication List Dutasteride 0.5 mg PO DAILY 09/25/21 [History] Ketorolac 0.5% Ophth Soln [Acular 0.5%] 1 drop LEFT EYE QID 09/25/21 [History] Prednisolone Acetate/Pf [Prednisolone Acet 1% Eye Drop] 1 drop LEFT EYE QID 09/25/21 [History] Tamsulosin HCl [Flomax] 0.4 mg PO DAILY 09/25/21 [History] Vit C/E/Zn/Coppr/Lutein/Zeaxan [Preservision Areds 2 Softgel] 1 cap PO BID 09/25/21 [History] Ibuprofen 600 - 800 mg PO DAILY PRN 10/12/21 [History] Cephalexin [Keflex] 500 mg PO Q8HR #15 cap 10/16/21 [Rx] HYDROcodone/APAP 10-325MG [[place] 10-325] 1 tab PO Q6HR PRN 3 Days #12 tab 10/16/21 [Rx] Patient Instructions/Handouts: *[facility] - Anesthesia Discharge Instructions, *[facility] - Cystoscopy Discharge Instructions, Bladder Biopsy (DC) Activity/Diet/Wound Care/Special Instructions: Increase fluid intake It is normal to see blood in the urine Discharge Disposition: HOME SELF-CARE
[2021-10-17] MEDS: prednisoLONE ACETATE 1% OPHTH DROPS 5 ML BTL LEFT EYE SCH (10:14)
[2021-10-17] MEDS: KETOROLAC 0.5% OPHTH DROPS 5 ML BTL LEFT EYE SCH (10:14)
== END 2021-10-17 14:05 | disposition home or self-care (01) ==
LOC: OR 13:01 → 6NMEDSUR 16:23 → OR 10-17 14:05
PROVIDERS: ATTEND Urology
DX: C67.9 Malignant neoplasm of bladder, unspecified (principal); J44.9 Chronic obstructive pulmonary disease, unspecified; M19.90 Unspecified osteoarthritis, unspecified site; Z92.21 Personal history of antineoplastic chemotherapy; K21.9 Gastro-esophageal reflux disease without esophagitis; N40.0 Benign prostatic hyperplasia without lower urinary tract symptoms; K59.00 Constipation, unspecified; Z96.641 Presence of right artificial hip joint; Z98.890 Other specified postprocedural states; Z87.891 Personal history of nicotine dependence; Z80.7 Family history of other malignant neoplasms of lymphoid, hematopoietic and related tissues; Z79.899 Other long term (current) drug therapy
CPT/HCPCS: 52204; S0138; J2710; J0690; J2405; J2001; J3010; J1885 ×2; J0330; J2704; J1170; 88305; 88341; 88342

== ENCOUNTER → 2021-11-24 | Outpatient (CLI) | payer BC ==
--- NOTE | 2021-11-24 20:53 | CT ---
EXAMINATION TYPE: CT chest w con DATE OF EXAM: 11/24/2021 COMPARISON: Prior chest CT June 02, 2019 HISTORY: BLADDER CA CT DLP: 238.6 mGycm. Automated Exposure Control for Dose Reduction was Utilized. TECHNIQUE: CT scan of the thorax is performed following with IV Contrast, patient injected with 80 M L mL of Isovue 300. FINDINGS: LUNGS: [id number] underlying emphysematous changes redemonstrated bilaterally. Moderate scatter ed parenchymal fibrosis particularly in the left lung greatest in the left lung base with honeycombin g redemonstrated. No new focal consolidation or groundglass opacity. No new focal nodules or masses. No pleural effusion or pneumothorax seen bilaterally. MEDIASTINUM: Stable right hilar 2.0 x 1.9 cm lymph node axial image 24. Additional prominent but subc entimeter mediastinal lymph nodes in the paratracheal region and AP window or redemonstrated. No new or enlarging lymph nodes. Severe three-vessel coronary artery calcification and/or stents is redemons trated. No cardiomegaly or pericardial effusion is seen. OTHER: Few tiny dependent calcified gallstones. Underlying scoliosis with straightening of thoracic s pine and moderate multilevel spurring is redemonstrated. IMPRESSION: No new suspicious nodules or masses or no enlarging thoracic adenopathy to suggest metast atic disease. Chronic emphysematous and pulmonary fibrotic changes without acute pulmonary process. N o significant change from most recent prior CT.
== END | disposition home or self-care (01) ==
LOC: RADCTMAIN 18:04
PROVIDERS: ATTEND Urology
DX: C67.9 Malignant neoplasm of bladder, unspecified (principal); J43.9 Emphysema, unspecified; J84.10 Pulmonary fibrosis, unspecified
CPT/HCPCS: 82565; 84520; 71260; 36415; Q9967

== ENCOUNTER → 2021-12-22 | Outpatient (CLI) | payer BC ==
--- NOTE | 2021-12-22 14:35 | CT ---
CT urogram. HISTORY: Malignant neoplasm of bladder Comparison: CT urogram dated 08/10/2021. TECHNIQUE: Multiple axial images are obtained through the abdomen and pelvis before and after adminis tration of nonionic IV contrast. Delayed postcontrast images were obtained. Sagittal reconstructions were generated and reviewed. FINDINGS: There are marked emphysematous changes in the lungs with architectural distortion bronchiectasis and honeycombing in the lung bases, left greater than right. There is no suspicious lung mass. There is n o pleural effusion. There is cholelithiasis but no gallbladder wall thickening or distention. There is no focal mass pancreas, spleen or adrenal glands. Kidneys contrast promptly and symmetrically and there is no solid renal mass or hydronephrosis. There are small bilateral cortical cysts. There are no filling defects within the visualized portions of t he contrast-filled collecting systems or ureters. Evaluation the urinary bladder is limited due to st reak artifact from the right hip prosthesis. There appears to be mild urinary bladder wall thickening . There is marked atherosclerotic change of the abdominal aorta with aneurysmal dilatation. The maximum diameter is 3.7 mm. There is mild diffuse mural thrombus and there is mild aneurysmal dilatation and marked calcification of the common iliac arteries. The bowel loops are normal in caliber is no evidence of dilatation or obstruction. No inflammatory ch anges are identified in the bowel wall or mesentery and there is no free intraperitoneal air or fluid . There is no pelvic mass, free fluid, abscess or adenopathy. There is a moderate amount of stool withi n the colon. There is diverticulosis of the sigmoid colon without CT evidence of diverticulitis. No f ocal lytic or blastic osseous abnormalities are seen. Overall there is been no significant interval change since the prior study. IMPRESSION: 1. Marked emphysematous change and interstitial fibrosis in the lung bases described above. 2. Mild cholelithiasis. 3. Marked arteriosclerotic changes of the abdominal aorta and common iliac arteries with mild aneurys mal dilatation as described above. 4. mild prostatic hypertrophy. 5. no suspicious renal mass, renal calcification or process. No filling defects within the visualized renal collecting systems or ureters or urinary bladder. 6. Diverticulosis of the colon without CT evidence of diverticulitis. 7. No significant interval change compared to previous. No evidence of metastatic disease.
== END | disposition home or self-care (01) ==
LOC: RADCTMAIN 11:22
PROVIDERS: ATTEND Urology
DX: C67.9 Malignant neoplasm of bladder, unspecified (principal); K80.20 Calculus of gallbladder without cholecystitis without obstruction; N40.0 Benign prostatic hyperplasia without lower urinary tract symptoms; K57.30 Diverticulosis of large intestine without perforation or abscess without bleeding
CPT/HCPCS: 82565; 84520; 74178; 36415; 74400; Q9967